=== PATIENT | female | born 1995 | race Caucasian/White ===

== ENCOUNTER 2017-04-28 16:46 | Emergency (ER) | payer BC ==
[~2017-04-28] VITALS: Ht 157.5 cm; Wt 45.4 kg
[~2017-04-28 16:46] MED LIST: ALB18R INH; [UNRECOGNIZED DRUG - REMARK] PO
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
[2017-04-28] MEDS ORDERED: LR(*) 1000 ML BAG 1,000 ML IV ONE (17:19)
[2017-04-28] MEDS ORDERED: ONDANSETRON 4 MG/2 ML VIAL IVP ONE (17:20)
[2017-04-28 17:30] LABS: PLATELET COUNT, AUTOMATED 228 K/uL (150-450)
[2017-04-28] MEDS ORDERED: IOPAMIDOL 76% 75 ML INFUS BTL 75 ML ONE (17:34)
[2017-04-28] MEDS ORDERED: NS 0.9% 50 ML VIAL 50 ML ONE (17:34)
--- NOTE | 2017-04-28 18:25 | RADIOLOGY IMAGING REPORT ---
FACILITY: [facility] [place] PATIENT NAME: Gloria Larry : 1995 MR: [id number] V: [id number] EXAM DATE: ORDERING PHYSICIAN: JOHANNA CARRILLO TECHNOLOGIST: Location: [facility] - [place] Patient: Gloria Larry : 1995 Visit/Account:[id number] Date of Sevice: 04/28/2017 CT abdomen and pelvis with IV contrast Indication: Right lower abdominal pain. Comparison: None available. . Technique: Axial CT images were obtained through the abdomen and pelvis during injection of nonioni c iodinated intravenous contrast. Reformatted coronal and sagittal images were also obtained. One of the following dose optimization techniques was utilized in the performance of this exam: Autom ated exposure control; adjustment of the mA and/or kV according to the patient's size; or use of an i terative reconstruction technique. Specific details can be referenced in the facility's radiology C T exam operational policy. Contrast: 75 ml of Isovue-370 IV contrast. Findings: Lower lung winkler: Limited views lower lung field are unremarkable. Liver: No focal parenchymal abnormality of the liver. Biliary: Gallbladder appears unremarkable as well as the intra and extra hepatic biliary system. Pancreas: Normal appearance. Spleen: Normal appearance. Adrenal glands: Unremarkable. Kidneys / retroperitoneum: The collecting system of the right kidney does show to separate 2 mm stone s without hydronephrosis. Left kidney shows no stones or hydronephrosis. No discrete renal lesions. Bowel / peritoneum / mesenteries: The visualized gastrointestinal tract, including the appendix, with in normal limits. The stomach is unremarkable. No free air, free fluid, fluid collections or areas of inflammation. Lymph node assessment: No pathologic adenopathy identified. Pelvic structures: Appear unremarkable. Vessels: No significant atherosclerotic calcifications seen throughout a nonaneurysmal abdominal aort a and branches. Musculoskeletal / Body wall: No acute or aggressive osseous abnormality. Mild leftward convexity of t he thoracal lumbar spine. IMPRESSION: 1. No acute intra-abdominal abnormality. The appendix is normal. 2. Nonobstructing right renal calculi. Report Dictated By: Luciano Toussaint at 04/28/2017 6:12 PM Report E-Signed By: Luciano Toussaint at 04/28/2017 6:19 PM [id number]
[2017-04-28 18:30] VITALS: BP 101/58
[2017-04-28] MEDS ORDERED: ONDA4TAB PO (18:50)
== END 2017-04-28 19:01 | disposition home or self-care (01) ==
LOC: ER 17:02
DX: N20.0 Calculus of kidney (principal)
CPT/HCPCS: 74177; 81001; 81025; 85025; 96361; 96374; 99284; J2405; J7050; J7120; Q9967; 82040; 82247; 82310; 82374; 82435; 82565; 82947; 84075; 84132; 84155; 84295; 84450; 84460; 84520

== ENCOUNTER 2017-10-28 20:02 | Emergency (ER) | payer OTHER, BC ==
[~2017-10-28 20:02] MED LIST changes: +ONDA4TAB PO
[2017-10-28 20:06] VITALS: BP 126/91
[2017-10-28] MEDS ORDERED: ETON68IM SQ (20:10)
[2017-10-28] MEDS ORDERED: FLUT16SP19 NS (20:10)
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
[2017-10-28] MEDS ORDERED: SILV20CR2 TP (20:38)
== END 2017-10-28 20:48 | disposition home or self-care (01) ==
LOC: ER 20:14
DX: T20.10XA Burn of first degree of head, face, and neck, unspecified site, initial encounter (principal); T22.10XA Burn of first degree of shoulder and upper limb, except wrist and hand, unspecified site, initial encounter; T23.101A Burn of first degree of right hand, unspecified site, initial encounter
CPT/HCPCS: 99281

== ENCOUNTER 2018-02-17 23:04 | Emergency (ER) | payer BC, OTHER ==
[~2018-02-17 23:04] MED LIST changes: +ETON68IM SQ; +FLUT16SP19 NS; +SILV20CR2 TP
--- NOTE | 2018-02-17 23:17 | ER Report ---
History and Physical Time Seen By MD: 23:17 Hx. of Stated Complaint: patient states that she thinks that she has a kidney stone; right sided abd. pain since monday and states that she thought it was the stomach flu but did not get better; last time she has this pain she had a kidney stone HPI/ROS CHIEF COMPLAINT: left lower abdominal pain, possible kidney stone HISTORY OF PRESENT ILLNESS: This is a 22 year old female. She is having some lower left abdominal pain. This started about 1900 hours tonight. Having urinary frequency. Also feeling occurring frequently, the need to have a bowel movement, and only having small movement. No fever or chills. Took some Tylenol which helped a little. Pain is intermittent and waxes and wanes. similar to kidney stone in the past, which was on the right. Having nausea and vomiting. No fevers or chills. Had some mild similar symptoms on Monday, but went away. No chest pain. 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 No acute distress. Eyes: Pupils are equal, round. No pallor, injection or icterus. ENT: Mucous membranes are moist. Respiratory: Lungs are clear to auscultation. Cardiovascular: Regular rate and rhythm. No murmurs, gallops or rubs. Gastrointestinal: Abdomen is soft, tender in left lower abdomen. Nondistended. Normal active bowel sounds. No CVA tenderness. Neurological: Alert and oriented x3. No focal neurologic deficits Skin: Warm and dry. Musculoskeletal: Extremities are nontender. No pain with palpation of the back. DIFFERENTIAL DIAGNOSIS: After history and physical exam, differential diagnosis was considered for abdominal pain including but not limited to colitis, gastroenteritis, kidney stone and urinary tract infection. Medical Decision Making Data Points Result Diagram: 02/17/18233102/17/18 2332 Laboratory Hematology Test 02/17/18 23:32 Red Blood Count 4.64 M/uL (4.17-5.56) Mean Corpuscular Volume 94.4 fL (80.0-96.0) Mean Corpuscular Hemoglobin 31.7 pg (26.0-33.0) Mean Corpuscular Hemoglobin Concent 33.6 g/dL (32.0-36.0) Red Cell Distribution Width 13.0 % (11.5-14.5) Mean Platelet Volume 8.6 fL (7.2-11.1) Neutrophils (%) (Auto) 57.7 % (39.4-72.5) Lymphocytes (%) (Auto) 33.5 % (17.6-49.6) Monocytes (%) (Auto) 6.5 % (4.1-12.4) Eosinophils (%) (Auto) 1.6 % (0.4-6.7) Basophils (%) (Auto) 0.7 % (0.3-1.4) Nucleated RBC Relative Count (auto) 0.0 /100WBC Neutrophils # (Auto) 2.8 K/uL (2.0-7.4) Lymphocytes # (Auto) 1.6 K/uL (1.3-3.6) Monocytes # (Auto) 0.3 K/uL (0.3-1.0) Eosinophils # (Auto) 0.1 K/uL (0.0-0.5) Basophils # (Auto) 0.0 K/uL (0.0-0.1) Nucleated RBC Absolute Count (auto) 0.00 K/uL Urine Color Yellow Urine Clarity Clear Urine pH 6.0 pH (4.8-9.5) Urine Specific [place] 1.018 Urine Protein Negative mg/dL (NEGATIVE) Urine Glucose (UA) Negative mg/dL (NEGATIVE) Urine Ketones Negative mg/dL (NEGATIVE) Urine Blood Negative (NEGATIVE) Urine Nitrite Negative (NEGATIVE) Urine Bilirubin Negative (NEGATIVE) Urine Urobilinogen Negative mg/dL (0.2-1.9) Urine Leukocyte Esterase Negative (NEGATIVE) Urine RBC 1 /HPF (0-2/HPF) Urine WBC 1 /HPF (0-5/HPF) Urine Squamous Epithelial Cells Many /LPF (</=FEW) Urine Transitional Epithelial Cells Few /LPF (NONE-FEW) Urine Bacteria Few /HPF (NONE-FEW) Urine Mucus Few /HPF (NONE-FEW) Sodium Level 137 mmol/L (137-145) Potassium Level 3.5 mmol/L (3.5-5.0) Chloride Level 107 mmol/L (98-107) Carbon Dioxide Level 22 mmol/L (22-31) Blood Urea Nitrogen 10 mg/dl (7-18) Creatinine 0.90 mg/dl (0.52-1.04) Glomerular Filtration Rate Calc > 60.0 Random Glucose 90 mg/dl (75-110) Calcium Level 8.9 mg/dl (8.4-10.2) Total Bilirubin 0.5 mg/dl (0.2-1.3) Aspartate Amino Transf (AST/SGOT) 18 U/L (0-35) Alanine Aminotransferase (ALT/SGPT) 22 U/L (0-56) Alkaline Phosphatase 60 U/L (0-126) Total Protein 6.6 g/dl (6.3-8.2) Albumin 3.8 g/dl (3.5-5.0) Chemistry Test 02/17/18 23:32 White Blood Count 4.9 k/uL (4.5-11.0) Red Blood Count 4.64 M/uL (4.17-5.56) Hemoglobin 14.7 g/dL (12.0-16.0) Hematocrit 43.8 % (34.0-47.0) Mean Corpuscular Volume 94.4 fL (80.0-96.0) Mean Corpuscular Hemoglobin 31.7 pg (26.0-33.0) Mean Corpuscular Hemoglobin Concent 33.6 g/dL (32.0-36.0) Red Cell Distribution Width 13.0 % (11.5-14.5) Platelet Count 202 K/uL (150-450) Mean Platelet Volume 8.6 fL (7.2-11.1) Neutrophils (%) (Auto) 57.7 % (39.4-72.5) Lymphocytes (%) (Auto) 33.5 % (17.6-49.6) Monocytes (%) (Auto) 6.5 % (4.1-12.4) Eosinophils (%) (Auto) 1.6 % (0.4-6.7) Basophils (%) (Auto) 0.7 % (0.3-1.4) Nucleated RBC Relative Count (auto) 0.0 /100WBC Neutrophils # (Auto) 2.8 K/uL (2.0-7.4) Lymphocytes # (Auto) 1.6 K/uL (1.3-3.6) Monocytes # (Auto) 0.3 K/uL (0.3-1.0) Eosinophils # (Auto) 0.1 K/uL (0.0-0.5) Basophils # (Auto) 0.0 K/uL (0.0-0.1) Nucleated RBC Absolute Count (auto) 0.00 K/uL Urine Color Yellow Urine Clarity Clear Urine pH 6.0 pH (4.8-9.5) Urine Specific [place] 1.018 Urine Protein Negative mg/dL (NEGATIVE) Urine Glucose (UA) Negative mg/dL (NEGATIVE) Urine Ketones Negative mg/dL (NEGATIVE) Urine Blood Negative (NEGATIVE) Urine Nitrite Negative (NEGATIVE) Urine Bilirubin Negative (NEGATIVE) Urine Urobilinogen Negative mg/dL (0.2-1.9) Urine Leukocyte Esterase Negative (NEGATIVE) Urine RBC 1 /HPF (0-2/HPF) Urine WBC 1 /HPF (0-5/HPF) Urine Squamous Epithelial Cells Many /LPF (</=FEW) Urine Transitional Epithelial Cells Few /LPF (NONE-FEW) Urine Bacteria Few /HPF (NONE-FEW) Urine Mucus Few /HPF (NONE-FEW) Glomerular Filtration Rate Calc > 60.0 Calcium Level 8.9 mg/dl (8.4-10.2) Total Bilirubin 0.5 mg/dl (0.2-1.3) Aspartate Amino Transf (AST/SGOT) 18 U/L (0-35) Alanine Aminotransferase (ALT/SGPT) 22 U/L (0-56) Alkaline Phosphatase 60 U/L (0-126) Total Protein 6.6 g/dl (6.3-8.2) Albumin 3.8 g/dl (3.5-5.0) Urinalysis Test 02/17/18 23:32 Urine Color Yellow Urine Clarity Clear Urine pH 6.0 pH (4.8-9.5) Urine Specific [place] 1.018 Urine Protein Negative mg/dL (NEGATIVE) Urine Glucose (UA) Negative mg/dL (NEGATIVE) Urine Ketones Negative mg/dL (NEGATIVE) Urine Blood Negative (NEGATIVE) Urine Nitrite Negative (NEGATIVE) Urine Bilirubin Negative (NEGATIVE) Urine Urobilinogen Negative mg/dL (0.2-1.9) Urine Leukocyte Esterase Negative (NEGATIVE) Urine RBC 1 /HPF (0-2/HPF) Urine WBC 1 /HPF (0-5/HPF) Urine Squamous Epithelial Cells Many /LPF (</=FEW) Urine Transitional Epithelial Cells Few /LPF (NONE-FEW) Urine Bacteria Few /HPF (NONE-FEW) Urine Mucus Few /HPF (NONE-FEW) EKG/Imaging Imaging CT of the abdomen and pelvis without contrast: Indication: Left flank lower quadrant pain. Technique: Helical CT was performed through the abdomen and pelvis without contrast. Multiplanar reconstructions are reviewed. One of the following dose optimization techniques was utilized in the performance of this exam: Automated exposure control; adjustment of the mA and/or kV according to the patient's size; or use of an iterative reconstruction technique. Specific details can be referenced in the facility's radiology CT exam operational policy. Comparison: 04/28/2017 Lower lung winkler: No focal parenchymal or pleural abnormality is identified. Liver: Normal in size, shape, and density. Gallbladder/biliary tree: The gallbladder appears contracted, but otherwise unremarkable. The bile ducts are normal in caliber. Pancreas: Normal in size, shape, and density. Spleen: Normal in size, shape, and density. Adrenal glands: Within normal limits. Kidneys/urinary bladder: The left kidney appears normal in size, shape, and density. There are no signs of calculus or obstruction of the left ureter or kidney. There are small nonobstructing calculi in the right kidney. The right kidney is otherwise unremarkable. There are no signs of right ureteral calculus or obst ruction. The bladder appears homogeneous and unremarkable. Intestinal structures: Unremarkable, as visualized. There are no signs of obstruction or inflammatory changes. Pelvis: The uterus and adnexal structures are unremarkable. Aorta and vascular structures: Within normal limits. Ascites or fluid collections: None seen. Skeletal structures: Intact and unremarkable. Impression: There are small nonobstructing calculi in the right kidney. There are no signs of left urinary tract calculus or obstruction. Report Dictated By: Roc Metz MD at 02/18/2018 1:06 AM Ultrasound of the pelvis: Indication: Left lower quadrant and pelvic pain. Technique: Transvaginal imaging, with Doppler. Comparison: CT scan from earlier the same day. Uterus: Normal in size, shape, and echogenicity, measuring 5.4 x 2.8 x 2.5 cm. There is no evidence of mass, calcification, or fluid. The endometrial stripe measures 4 mm. Right ovary/adnexa: The right ovary measures 2.7 x 2.4 x 1.8 cm. A simple cyst is present, measuring approximately 1.9 cm. Doppler images demonstrate no evidence of ovarian torsion. No adnexal mass or fluid collection is identified. Left ovary/adnexa: The left ovary measures 2.1 x 2.0 x 1.6 cm. A few tiny follicles are present. Doppler images demonstrate no evidence of torsion. No adnexal mass or fluid collection is identified. Free fluid: None seen. IMPRESSION: There is a small simple cyst in the right ovary. There are no signs of ovarian torsion. No fluid collection or free fluid is identified. Report Dictated By: Roc Metz MD at 02/18/2018 3:19 AM ED Course/Re-evaluation Clinical Indication for ER IV: Hydration, IV Access ED Course Lab results unremarkable. CT scan negative for stone or other abnormality. Urinalysis negative as well. Reviewed these results with the patient. Went ahead and obtained a pelvic ultrasound after this, and this was negative as well. Patient discharged home, see instructions below. Decision to Disposition Date: Feb 18, 2018 Decision to Disposition Time: 03:50 Depart Departure Latest Vital Signs Vital Signs Date Time Temp Pulse Resp B/P (MAP) Pulse Ox O2 Delivery O2 Flow Rate FiO2 02/18/18 00:04 64 99 02/18/18 00:00 102/63 (76) 02/17/18 23:09 98.3 17 Room Air Impression: Primary Impression: Left sided abdominal pain of unknown cause Condition: Improved Disposition: HOME OR SELF-CARE Patient Instructions: Acute Abdominal Pain (ED) Additional Instructions: We did not find a cause for your abdominal pain tonight. The CT scan and the ultrasound were negative. This may be a gastrointestinal upset or virus. Increase fluid intake and rest over the next few days. You can use Tylenol or Ibuprofen for pain. ANAYELI DAS MD Feb 17, 2018 23:17
[2018-02-17] MEDS ORDERED: NS(*) 0.9% 1000 ML BAG 1,000 ML IV ONE (23:25)
[2018-02-17 23:54] LABS: PLATELET COUNT, AUTOMATED 202 K/uL (150-450)
[2018-02-18] VITALS: BP 102/63
--- NOTE | 2018-02-18 01:22 | RADIOLOGY IMAGING REPORT ---
FACILITY: [facility] [place] PATIENT NAME: Gloria Larry : 1995 MR: [id number] V: [id number] EXAM DATE: ORDERING PHYSICIAN: ANAYELI DAS TECHNOLOGIST: Location: [facility] Patient: Gloria Larry : 1995 Visit/Account:[id number] Date of Sevice: 02/17/2018 CT of the abdomen and pelvis without contrast: Indication: Left flank lower quadrant pain. Technique: Helical CT was performed through the abdomen and pelvis without contrast. Multiplanar rec onstructions are reviewed. One of the following dose optimization techniques was utilized in the performance of this exam: Autom ated exposure control; adjustment of the mA and/or kV according to the patient's size; or use of an i terative reconstruction technique. Specific details can be referenced in the facility's radiology CT exam operational policy. Comparison: 04/28/2017 Lower lung winkler: No focal parenchymal or pleural abnormality is identified. Liver: Normal in size, shape, and density. Gallbladder/biliary tree: The gallbladder appears contracted, but otherwise unremarkable. The bile du cts are normal in caliber. Pancreas: Normal in size, shape, and density. Spleen: Normal in size, shape, and density. Adrenal glands: Within normal limits. Kidneys/urinary bladder: The left kidney appears normal in size, shape, and density. There are no sig ns of calculus or obstruction of the left ureter or kidney. There are small nonobstructing calculi in the right kidney. The right kidney is otherwise unremarkabl e. There are no signs of right ureteral calculus or obstruction. The bladder appears homogeneous and unremarkable. Intestinal structures: Unremarkable, as visualized. There are no signs of obstruction or inflammatory changes. Pelvis: The uterus and adnexal structures are unremarkable. Aorta and vascular structures: Within normal limits. Ascites or fluid collections: None seen. Skeletal structures: Intact and unremarkable. Impression: There are small nonobstructing calculi in the right kidney. There are no signs of left ur inary tract calculus or obstruction. Report Dictated By: Roc Metz MD at 02/18/2018 1:06 AM Report E-Signed By: Roc Metz MD at 02/18/2018 1:18 AM WSN:[id number]
--- NOTE | 2018-02-18 03:41 | RADIOLOGY IMAGING REPORT ---
FACILITY: [facility] PATIENT NAME: Gloria Larry : 1995 MR: [id number] V: [id number] EXAM DATE: ORDERING PHYSICIAN: ANAYELI DAS TECHNOLOGIST: Location: [facility] - [place], [place] Patient: Gloria Larry : 1995 Visit/Account:[id number] Date of Sevice: 02/18/2018 Ultrasound of the pelvis: Indication: Left lower quadrant and pelvic pain. Technique: Transvaginal imaging, with Doppler. Comparison: CT scan from earlier the same day. Uterus: Normal in size, shape, and echogenicity, measuring 5.4 x 2.8 x 2.5 cm. There is no evidence o f mass, calcification, or fluid. The endometrial stripe measures 4 mm. Right ovary/adnexa: The right ovary measures 2.7 x 2.4 x 1.8 cm. A simple cyst is present, measuring approximately 1.9 cm. Doppler images demonstrate no evidence of ovarian torsion. No adnexal mass or f luid collection is identified. Left ovary/adnexa: The left ovary measures 2.1 x 2.0 x 1.6 cm. A few tiny follicles are present. Dopp ler images demonstrate no evidence of torsion. No adnexal mass or fluid collection is identified. Free fluid: None seen. IMPRESSION: There is a small simple cyst in the right ovary. There are no signs of ovarian torsion. N o fluid collection or free fluid is identified. Report Dictated By: Roc Metz MD at 02/18/2018 3:19 AM Report E-Signed By: Roc Metz MD at 02/18/2018 3:37 AM WSN:[id number]
== END 2018-02-18 04:05 | disposition home or self-care (01) ==
LOC: ER 23:23
DX: R10.32 Left lower quadrant pain (principal)
CPT/HCPCS: 74176; 76830; 81001; 85025; 96360; 99284; J7030; 82040; 82247; 82310; 82374; 82435; 82565; 82947; 84075; 84132; 84155; 84295; 84450; 84460; 84520